=== PATIENT | male | born 1990 | race Caucasian/White ===

== ENCOUNTER 2018-08-26 14:49 | Emergency (ER) | payer OTHER, SELFPAY ==
[2018-08-26 14:50] VITALS: BP 134/66; PULSE 68; RESP 15; TEMP 36.3; O2SAT 99; BMI 35.1
--- NOTE | 2018-08-26 15:02 | RAD_ITS ---
STUDY: X-RAY - RIGHT ANKLE REASON FOR EXAM: Male, 28 years old. Pain and swelling following a fall. TECHNIQUE: 3 view(s) of the ankle. COMPARISON: None. FINDINGS: Transverse fracture of the distal fibular shaft with medial displacement of the distal fracture fragment. Avulsion fracture of the medial malleolus. Asymmetry of the ankle mortise. Normal visualized talus and calcaneus. The visualized subtalar, talonavicular, calcaneocuboid and tarsal articulations are normal. Soft tissue swelling. RAD/Ankle min 3 Views IMPRESSION: Fracture involving the distal diaphysis of the fibula as well as the multiple fracture of the medial malleolus with asymmetry of the ankle mortise and soft tissue swelling. Electronically Signed: Riki Wright, at 15:23 EDT , Service support ,
--- NOTE | 2018-08-26 15:32 | ED.RN ---
employer called. 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 he stated that it is not workers comp. [id number]
--- NOTE | 2018-08-26 15:54 | ED.DCSUM_ITS ---
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 Equipment rolled onto his right ankle and he felt a pop. Physical Examination: Patient has diffuse swelling and tenderness to his right ankle at the bilateral malleoli. Compartments soft. Skin intact. Neurovascular intact distally. Test Results: X-rays show a distal fibula fracture and a medial malleolus fracture with widening of the mortise. Emergency Department Course and Treatment: Patient declined pain medicine. He was placed in a posterior short leg Ortho-Glass splint and a sugar tong splint by tx. He tolerated this well. Neurovascular intact distally afterwards. Treatment Plan: Patient will be treated with pain medicine. Rest, ice, elevate. Follow-up with Dr. Rios. Patient declined crutches as he has them at home. Disposition: Discharge Impression: 1. Right distal fibula fracture 2. Right medial malleolar fracture This note was generated with [employer] dictation software. It may contain incorrect words, spelling, and punctuation that were not noted in review of the chart prior to signing ED Disposition - Plan for ED Patient: Referrals: Wu Caba [Primary Care Provider] -
--- NOTE | 2018-08-26 15:55 | ED.DEP ---
ED Disposition - Plan for ED Patient: Instructions: ANKLE FRACTURE (Distal Fibula), closed Prescriptions: Oxycodone HCl/Acetaminophen [Percocet 5/325] 1 tab PO Q6H PRN PRN 3 Days #12 tab PRN Reason: Pain Prescription Printed Referrals: Blaze Rios DO [STAFF PHYSICIAN] - Sylvester Xiao MD [STAFF PHYSICIAN] -
[2018-08-26] MEDS: HYDROcodone Bitartrate/Apap 5/325 Tablet PO (16:33)
[2018-08-26 17:18] VITALS: BP 132/85; PULSE 78; RESP 14; O2SAT 99
== END 2018-08-26 17:19 | disposition home or self-care (01) ==
PROVIDERS: Emergency Provider Emergency Medicine; Family Provider Family Medicine; PCP Family Medicine
DX: S82.831A Other fracture of upper and lower end of right fibula, initial encounter for closed fracture (principal); S82.54XA Nondisplaced fracture of medial malleolus of right tibia, initial encounter for closed fracture; W31.82XA Contact with other commercial machinery, initial encounter; Y93.89 Activity, other specified; Y92.410 Unspecified street and highway as the place of occurrence of the external cause; Y99.0 Civilian activity done for income or pay
CPT/HCPCS: 29515; 73610; 99282